=== PATIENT | female | born 1990 | race Caucasian/White ===

== ENCOUNTER → 2016-04-29 | Outpatient (CLI) | payer OTHER ==
[2016-04-29 13:51] LABS: BASO % 0.5 % (0.0-1.0); EOS # 0.2 K/mm3 (0.0-0.50); EOS % 2.2 % (0.0-3.0); LARGE UNSTAINED CELL # 0.1 K/mm3 (0.0-0.4); LARGE UNSTAINED CELL % 1.5 % (0.0-4.0); LYMPH # 1.8 K/mm3 (1.5-6.5); LYMPH % 26.9 % (24.0-44.0); MEAN CORPUSCULAR HEMOGLOBIN 30.9 pg (27.0-33.0); MEAN CORPUSCULAR HGB CONC 32.9 g/dl (32.0-36.5); MEAN CORPUSCULAR VOLUME 93.9 fl (80.0-96.0); MONO # 0.5 K/mm3 (0.0-0.8); MONO % 6.8 % (0.0-5.0); NEUTROPHILS # 4.3 K/mm3 (1.8-7.7); NEUTROPHILS % 62.2 % (36.0-66.0); PLATELET COUNT, AUTOMATED 341 k/mm3 (150-450); RED CELL DISTRIBUTION WIDTH 12.1 % (11.5-14.5); WHITE BLOOD COUNT 6.8 K/mm3 (4.0-10.0)
[2016-04-29 14:11] LABS: ALBUMIN/GLOBULIN RATIO 1.18 (1.00-1.93); ALKALINE PHOSPHATASE 51 U/L (45-117); ALT/SGPT 14 U/L (12-78); ANION GAP 7 MEQ/L (8-16); AST/SGOT 8 U/L (15-37); BILIRUBIN,TOTAL 0.3 MG/DL (0.2-1.0); BLOOD UREA NITROGEN 13 MG/DL (7-18); CALCIUM LEVEL 8.8 MG/DL (8.5-10.1); CARBON DIOXIDE LEVEL 30 MEQ/L (21-32); CHLORIDE LEVEL 106 MEQ/L (98-107); CHOLESTEROL LEVEL 173 MG/DL (<200); CREATININE FOR GFR 0.91 MG/DL (0.55-1.02); FREE T4 0.94 NG/DL (0.76-1.46); GLOMERULAR FILTRATION RATE > 60.0 (>60); GLUCOSE, FASTING 86 MG/DL (70-105); POTASSIUM SERUM 4.4 MEQ/L (3.5-5.1); SODIUM LEVEL 143 MEQ/L (136-145); THYROXINE (T4) 7.2 UG/DL (4.5-12.0); TOTAL PROTEIN 7.4 GM/DL (6.4-8.2); TRIGLYCERIDES LEVEL 78 MG/DL (<150)
== END ==
LOC: M WUC 09:31
PROVIDERS: ATTEND Internal Medicine Endocrinology, Diabetes & Metabolism
DX: F64.0 Transsexualism (principal)

== ENCOUNTER → 2016-12-06 | Outpatient (CLI) | payer MEDICAID, SELFPAY ==
[2016-12-06 09:06] LABS: BASO % 0.3 % (0.0-1.0); EOS # 0.2 10^3/uL (0.0-0.50); IMMATURE GRANULOCYTE % 0.1 % (0-0); LYMPH # 2.5 10^3/uL (1.5-6.5); LYMPH % 32.3 % (24.0-44.0); MEAN CORPUSCULAR HEMOGLOBIN 32.1 pg (27.0-33.0); MEAN CORPUSCULAR HGB CONC 34.2 g/dl (32.0-36.5); MEAN CORPUSCULAR VOLUME 93.8 fl (80.0-96.0); MONO # 0.6 10^3/uL (0.0-0.8); NEUTROPHILS # 4.4 10^3/uL (1.8-7.7); NEUTROPHILS % 57.3 % (36.0-66.0); PLATELET COUNT, AUTOMATED 282 10^3/uL (150-450); RED CELL DISTRIBUTION WIDTH 11.9 % (11.5-14.5); WHITE BLOOD COUNT 7.6 10^3/uL (4.0-10.0)
[2016-12-06 09:43] LABS: ALBUMIN/GLOBULIN RATIO 1.18 (1.00-1.93); BILIRUBIN,DIRECT 0.2 MG/DL (0.0-0.2); BILIRUBIN,TOTAL 0.6 MG/DL (0.2-1.0); FREE T4 0.98 NG/DL (0.76-1.46); TOTAL PROTEIN 7.4 GM/DL (6.4-8.2)
== END ==
LOC: M WUC 08:14
PROVIDERS: ATTEND Internal Medicine Endocrinology, Diabetes & Metabolism
DX: F64.0 Transsexualism (principal); R94.6 Abnormal results of thyroid function studies

== ENCOUNTER → 2017-08-11 | Outpatient (REF) ==
[2017-08-12 11:11] LABS: RUBEOLA IgG ANTIBODY 26.7 AU/mL (Immune >29.9)
[2017-08-12 14:49] LABS: RUBELLA IgG QUALITATIVE IMMUNE (IMMUNE)
[2017-08-13 09:13] LABS: HERPES ZOSTER, VARICELLA IgG 203 index (Immune >165)
== END ==
LOC: M LAB 08:35
DX: Z02.89 Encounter for other administrative examinations (principal)

== ENCOUNTER → 2018-10-03 | Outpatient (CLI) | payer BC ==
[2018-10-03 09:55] LABS: BASO % 0.3 % (0.0-1.0); EOS # 0.2 10^3/uL (0.0-0.50); EOS % 2.2 % (0.0-3.0); HEMATOCRIT 42.6 % (36.0-47.0); HEMOGLOBIN 14.3 g/dl (12.0-15.5); LYMPH # 2.1 10^3/uL (1.5-6.5); LYMPH % 30.7 % (24.0-44.0); MEAN CORPUSCULAR HEMOGLOBIN 32.1 pg (27.0-33.0); MEAN CORPUSCULAR HGB CONC 33.6 g/dl (32.0-36.5); MEAN CORPUSCULAR VOLUME 95.5 fl (80.0-96.0); MONO # 0.5 10^3/uL (0.0-0.8); NEUTROPHILS % 58.5 % (36.0-66.0); PLATELET COUNT, AUTOMATED 311 10^3/uL (150-450); RED BLOOD COUNT 4.46 10^6/uL (4.00-5.40); WHITE BLOOD COUNT 6.8 10^3/uL (4.0-10.0)
[2018-10-03 10:50] LABS: ALBUMIN 3.9 GM/DL (3.2-5.2); BILIRUBIN,DIRECT 0.1 MG/DL (0.0-0.2); BILIRUBIN,TOTAL 0.4 MG/DL (0.2-1.0); FREE T4 0.95 NG/DL (0.76-1.46); LUTEINIZING HORMONE 4.6 mIU/mL; THYROID STIMULATING HORMONE 4.26 uIU/ML (0.358-3.740); TOTAL PROTEIN 7.4 GM/DL (6.4-8.2)
--- NOTE | 2018-10-04 12:01 | REP ---
Clinical: Thyroid goiter. Technique: Real time boyd scale and color evaluation using linear high frequency transducer. Findings: Thyroid gland is mildly heterogeneous. Isthmus measures 4.0 mm in width. Right lobe measures 4.4 x 1.6 x 1.9 cm with a vague hypoechoic nonspecific nodule along the anterior margin measuring 12 x 8 x 5 mm. Left lobe measures 4.8 x 1.4 x 1.8 cm without obvious nodule or focal abnormality. Impression: Subtle nonspecific hypoechoic area/nodule in the right lobe. Electronically Signed by Artem Molina MD 10/04/2018 05:06 A
== END ==
LOC: M LAB 08:52
PROVIDERS: ATTEND Internal Medicine Endocrinology, Diabetes & Metabolism
DX: R79.89 Other specified abnormal findings of blood chemistry (principal); F64.0 Transsexualism

== ENCOUNTER 2018-11-04 06:05 | Emergency (ER) | payer BC ==
[~2018-11-04] VITALS: Ht 167.6 cm; Wt 70.5 kg
[2018-11-04 06:06] VITALS: BP 145/89
[2018-11-04] MEDS ORDERED: TEST200I14 IM (06:14)
[2018-11-04] MEDS ORDERED: PRED20TA PO (06:52)
--- NOTE | 2018-11-04 08:22 | REP ---
CHEST PA AND LATERAL: 11/04/2018. Clinical history: Cough. Findings: There are no prior studies. Two-view show the lung kenny well inflated. The CP angles sharply defined without effusion, lateral pleural thickening apical scarring or pneumothorax. There is no infiltrate, atelectasis or parenchymal lung lesion. The heart, mediastinal and hilar contours are normal. Aorta and airway were unremarkable. There is a gentle dextroconvex curve centered over the lower thoracic spine at T11. Bones show no acute finding. Impression: 1. No acute cardiopulmonary change. Electronically Signed by Bradley Malone MD 11/04/2018 07:29 P
== END 2018-11-04 07:00 | disposition home or self-care (01) ==
LOC: M ED 06:05
DX: J06.9 Acute upper respiratory infection, unspecified (principal); J40 Bronchitis, not specified as acute or chronic; Z79.899 Other long term (current) drug therapy

== ENCOUNTER → 2019-06-06 | Outpatient (CLI) | payer BC ==
[~2019-06-06] MED LIST: PRED20TA PO; TEST200I14 IM
[2019-06-06 14:54] LABS: HEMATOCRIT 43.7 % (42.0-52.0); HEMOGLOBIN 14.6 g/dl (13.5-17.5); MEAN CORPUSCULAR HEMOGLOBIN 31.1 pg (27.0-33.0); MEAN CORPUSCULAR HGB CONC 33.4 g/dl (32.0-36.5); PLATELET COUNT, AUTOMATED 303 10^3/uL (150-450); WHITE BLOOD COUNT 8.2 10^3/uL (4.0-10.0)
[2019-06-06 15:35] LABS: ALBUMIN 4.2 GM/DL (3.2-5.2); ALT/SGPT 21 U/L (12-78); BILIRUBIN,TOTAL 0.4 MG/DL (0.2-1.0); BLOOD UREA NITROGEN 21 MG/DL (7-18); CALCIUM LEVEL 8.7 MG/DL (8.5-10.1); CARBON DIOXIDE LEVEL 27 MEQ/L (21-32); CHLORIDE LEVEL 105 MEQ/L (98-107); CREATININE FOR GFR 1.24 MG/DL (0.70-1.30); FREE T4 1.17 NG/DL (0.76-1.46); GLOMERULAR FILTRATION RATE > 60.0 (>60); GLUCOSE, FASTING 85 MG/DL (70-100); LUTEINIZING HORMONE 5.3 mIU/mL (1.5-9.3); POTASSIUM SERUM 4.2 MEQ/L (3.5-5.1); SODIUM LEVEL 139 MEQ/L (136-145); TESTOSTERONE 538 NG/DL (241-827); TOTAL PROTEIN 7.9 GM/DL (6.4-8.2)
--- NOTE | 2019-06-07 04:59 | REP ---
Clinical: Follow up thyroid nodule. Technique: Real time boyd scale and color evaluation using linear high frequency transducer. Comparison: 10/03/2018. Findings: Thyroid gland is heterogeneous. There is a 7 x 11 x 6 mm nonspecific isoechoic nodule along the anterior midportion of the right thyroid lobe. No other nodules are identified. Right thyroid lobe measures 4.2 x 1.4 x 1.5 cm. Left thyroid lobe measures 4.5 x 1.7 x 1.5 cm. Isthmus measures 4.1 mm in width. Impression: Subtle nonspecific isoechoic nodule in the right lobe unchanged from prior examination. Electronically Signed by Artem Molina MD 06/07/2019 04:51 A
== END ==
LOC: M RAD 14:35 → EDSEX 15:30
PROVIDERS: ATTEND Internal Medicine Endocrinology, Diabetes & Metabolism
DX: E03.9 Hypothyroidism, unspecified (principal); F64.0 Transsexualism; E04.1 Nontoxic single thyroid nodule

== ENCOUNTER → 2024-04-06 | Outpatient (CLI) | payer OTHER ==
[2024-04-06 11:55] LABS: CHOLESTEROL RISK RATIO 4.67 (<5); HDL CHOLESTEROL 39.6 MG/DL (>40); LDL CHOLESTEROL 123.6 MG/DL (<100); NON-HDL-C 145.4 MG/DL
[2024-04-06 11:57] LABS: THYROID STIMULATING HORMONE 8.851 uIU/ML (0.55-4.78)
== END ==
LOC: M PLALAB 08:32
PROVIDERS: ATTEND Internal Medicine Endocrinology, Diabetes & Metabolism
DX: E78.5 Hyperlipidemia, unspecified (principal)